=== PATIENT | male | born 1985 | race Caucasian/White ===

== ENCOUNTER 2017-08-21 16:59 | Emergency (ER) | payer OTHER ==
[2017-08-21 17:12] VITALS: BP 131/84
--- NOTE | 2017-08-21 18:13 | ER Document Report ---
ED Fever - General Chief Complaint: Fever Stated Complaint: FEVER,HEADACHE Time Seen by Provider: 08/21/17 18:11 Mode of Arrival: Ambulatory Information source: Patient Notes: Patient presents with 1 day of fever and diffuse headache. Nothing makes pain better or worse. Does not radiate. It is constant. Is mild to moderate. He states that the fever was as high as 102 at home. No nausea vomiting diarrhea. No cough or congestion. No sinus congestion. No rashes. No known foreign travel. No known tick bites. TRAVEL OUTSIDE OF THE [place] IN LAST 30 DAYS: No - Related Data Allergies/Adverse Reactions: No Known Allergies Allergy (Unverified 08/21/17 17:00) Past Medical History - General Information source: Patient - Social History Smoking Status: Never Smoker Chew tobacco use (# tins/day): No Frequency of alcohol use: Rare Drug Abuse: None Family History: Reviewed & Not Pertinent Patient has suicidal ideation: No Patient has homicidal ideation: No Renal/ Medical History: Denies: Hx Peritoneal Dialysis Past Surgical History: Reports: Hx Genitourinary Surgery Review of Systems - Review of Systems Constitutional: Chills, Fever Cardiovascular: denies: Chest pain, Palpitations Respiratory: denies: Cough, Short of breath Physical Exam - Vital signs Vitals: Temp Pulse Resp BP Pulse Ox 100.1 F 90 16 131/84 H 96 08/21/17 17:11 08/21/17 17:11 08/21/17 17:11 08/21/17 17:11 08/21/17 17:11 Interpretation: Normal - General General appearance: Appears well, Alert In distress: None - HEENT Head: Normocephalic, Atraumatic Eyes: Normal Pupils: PERRL Neck: Normal. No: Lymphadenopathy, Meningismus - Respiratory Respiratory status: No respiratory distress Chest status: Nontender Breath sounds: Normal Chest palpation: Normal - Cardiovascular Rhythm: Regular Heart sounds: Normal auscultation Murmur: No - Abdominal Inspection: Normal Distension: No distension Bowel sounds: Normal Tenderness: Nontender Organomegaly: No organomegaly - Back Back: Normal, Nontender - Extremities General upper extremity: Normal inspection, Nontender, Normal color, Normal ROM , Normal temperature General lower extremity: Normal inspection, Nontender, Normal color, Normal ROM , Normal temperature, Normal weight bearing. No: Nessa's sign - Neurological Neuro grossly intact: Yes Cognition: Normal Orientation: AAOx4 [place] Coma Scale Eye Opening: Spontaneous [place] Coma Scale Verbal: Oriented [place] Coma Scale Motor: Obeys Commands Dada Coma Scale Total: 15 Speech: Normal Motor strength normal: LUE, RUE, LLE, RLE Sensory: Normal - Psychological Associated symptoms: Normal affect, Normal mood - Skin Skin Temperature: Warm Skin Moisture: Dry Skin Color: Normal Course - Vital Signs Vital signs: Temp Pulse Resp BP Pulse Ox 100.1 F 90 16 131/84 H 96 08/21/17 17:11 08/21/17 17:11 08/21/17 17:11 08/21/17 17:11 08/21/17 17:11 Discharge - Discharge Clinical Impression: Viral syndrome Condition: Stable Disposition: HOME, SELF-CARE Instructions: Viral Syndrome ([facility]) Additional Instructions: Use Tylenol and Motrin [id number]. Drink lots of fluids. Forms: Return to Work
== END 2017-08-21 18:36 | disposition home or self-care (01) ==
LOC: ER 16:59
DX: B34.9 Viral infection, unspecified (principal); R50.9 Fever, unspecified; R51 Headache
CPT/HCPCS: 99283